=== PATIENT | female | born 1975 | race Two or more races ===

== ENCOUNTER 2016-10-22 08:11 | Emergency (ER) | payer MEDICAID ==
[~2016-10-22] VITALS: Wt 80.0 kg
[2016-10-22] MEDS ORDERED: KETOROLAC 60 MG INJ IM STA (08:39)
[2016-10-22] MEDS ORDERED: HYDROCODONE/APAP (5/325) TAB PO ONE (09:00)
--- NOTE | 2016-10-22 09:52 | RADRPT ---
PROCEDURE: CT lumbar spine without contrast CLINICAL INDICATION: Lower back pain radiating to right leg TECHNIQUE: CT scan of the lumbar spine was performed on a high-resolution multi-detector CT scanne r. No IV contrast was administered. Coronal and sagittal reformatted images were obtained from the axial source images. Images were reviewed on a high-resolution PACS workstation. Exam CTDI = 22.76 mGy and the DLP = 663.42 mGy-cm. One or more of the following dose reduction techniques were used: Automated exposure control. Adjustment of the mA and/or kV according to patient size. Use of iterative reconstruction technique. COMPARISON: None available FINDINGS: There is straightening of the lumbar lordosis. Alignment remains intact. No acute fracture or dislo cation is seen. The vertebral body heights are preserved. Posterior elements structures are equall y unremarkable. The paraspinous soft tissues are unremarkable. No mass, hematoma, or other soft tis gustabo abnormality is seen. T12-L1 through L3-L4: The disk heights are maintained. The central canal and bilateral neural fora sun are adequately patent. L4-L5: The disk height is maintained. There is mild diffuse disk bulge with mild facet arthropathy and ligamentum flavum thickening. There is mild left neural foraminal stenosis. The central canal and right neural foramen remain adequately patent. L5-S1: There is moderate disk height loss with discogenic endplate changes. There is disk osteophyte complex with superimposed central broad-based disk protrusion mildly indenting the thecal sac. The re is moderate bilateral neural foraminal stenosis. IMPRESSION: 1. No acute fracture or traumatic malalignment. 2. Moderate bilateral neural foraminal stenosis at L5-S1 related to disk osteophyte complex combine d with superimposed disk protrusion and mild facet arthropathy. 3. Mild left neural foraminal stenosis at L5-S1. RPTAT: BB .Vibha Burroughs MD, Date Time Electronically viewed and signed by .Vibha Burroughs MD, MD on 10/22/2016 09:51 .O/
--- NOTE | 2016-10-22 10:49 | ERD ---
ER Documentation Chief Complaint Date/Time DATE: 10/22/16 Chief Complaint Low back pain HPI The patient is a 41-year-old female with a history of chronic lumbar back pain who presents to the Emergency Department with complaint of low back pain radiating down the right lower extremity. The patient reports that for the past several years she has been experiencing chronic lumbar back pain, which she has been told is secondary to significant muscle spasm. She goes regularly to physical therapy for her back spasm and pain. The patient notes that over the past three months, her pain has been gradually worsening. It is localized to the lumbar back, and over the past several months has begun to radiate down the right lower extremity. The pain is constant, but worsened with movement, particularly bending over and valsalva maneuver, and is mildly improved while lying supine. She has been taking the prescribed Tramadol and Naproxen, as needed, but with only minimal relief of pain. Upon waking up this morning, she continued to experience this pain, and instead of taking her medication, decided to present to the Emergency Department for further evaluation. She notes that in the past, she has had an x-ray of her back, but otherwise, has not had an CT or MRI performed. She denies any bowel or bladder disturbances, urinary retention, lower extremity numbness/paresthesias/weakness. Denies fevers , sweats, chills, nausea, vomiting. Denies saddle-region anesthesia or foot drop. Denies history of immunocompromised state or IV drug use. Denies dysuria , hematuria, polyuria or flank pain. No other complaints at this time. ROS All systems reviewed and are negative except as per history of present illness. Medications Home Meds Active Scripts Hydrocodone/Acetaminophen ([place] 5-325 Tablet) 1 Each Tablet, 1 EACH PO Q6, #12 TAB Prov:LANCE MAJOR PA-C 10/22/16 Allergies Allergies: Coded Allergies: No Known Allergy (Unverified , 10/22/16) PMhx/Soc History of Surgery: Yes (HYSTERECTOMY, HERNIA REPAIR (ABD & IGUINAL), APPY) Anesthesia Reaction: No Hx Neurological Disorder: No Hx Respiratory Disorders: No Hx Cardiac Disorders: No Hx Psychiatric Problems: No Hx Miscellaneous Medical Probl: Yes (BACK PAIN) Hx Alcohol Use: No Hx Substance Use: No Hx Tobacco Use: No Smoking Status: Never smoker Physical Exam Vitals Vital Signs Date Time Temp Pulse Resp B/P Pulse Ox O2 Delivery O2 Flow Rate FiO2 10/22/16 11:24 97.9 74 17 118/81 100 Room Air 10/22/16 08:17 97.7 68 17 110/83 100 Physical Exam GENERAL: Well-developed, well-nourished, in no acute distress HEENT: Head is normocephalic, atraumatic. No scleral pallor or icterus. Pupils equal, round and reactive to light. Extraocular movements intact. Conjunctiva pink. Moist mucous membranes. NECK: Supple. No masses, no tenderness, no lymphadenopathy. Trachea midline. No nuchal rigidity. Full range of motion. RESPIRATORY: Lungs are clear to auscultation bilaterally. Equal breath sounds. Normal expiratory effort. CARDIOVASCULAR: Regular rate and rhythm. S1 and S2 normal. No murmurs, rubs, or gallops. GASTROINTESTINAL: Abdomen is soft, nontender, and nondistended. No guarding, no rebound tenderness. Normal bowel sounds. No pulsatile abdominal masses. No gross peritonitis. FLANK: No CVA tenderness, no mass or swelling. BACK: No midline tenderness. Bilateral lumbar paraspinal muscle spasm tenderness, right > left. No step offs. No crepitus. No vesicles. No saddle- region anesthesia. No foot drop. Positive right-sided straight leg raise. No gross deformities. EXTREMITIES: No clubbing, cyanosis, or edema. Normal skin perfusion. Moving all extremities. 5/5 strength to lower extremities bilaterally. No focal swelling or erythema. Distal pulses are palpable, 2+ bilaterally. Capillary refill is less than 2 seconds. NEUROLOGIC: The patient is alert, awake, and oriented x 3. No focal neurologic deficits. Motor and sensation grossly intact. INTEGUMENT: Skin is clean, dry and intact. PSYCHIATRIC: Appropriate; Cooperative. Results 24 hrs Current Medications Medications (Trade) Dose Ordered Sig/Jennifer Route PRN Reason Start Time Stop Time Status Last Admin Dose Admin Ketorolac Tromethamine (Toradol) 60 mg ONCE STAT IM 10/22/16 08:39 10/22/16 08:41 DC 10/22/16 08:56 Acetaminophen/ Hydrocodone Bitart ([place] (5/325)) 1 tab ONCE ONCE PO 10/22/16 09:00 10/22/16 09:01 DC 10/22/16 08:55 Procedures/MDM DIAGNOSTIC TESTS AND INTERPRETATION: PROCEDURE: CT lumbar spine without contrast CLINICAL INDICATION: Lower back pain radiating to right leg TECHNIQUE: CT scan of the lumbar spine was performed on a high-resolution multi-detector CT scanner. No IV contrast was administered. Coronal and sagittal reformatted images were obtained from the axial source images. Images were reviewed on a high-resolution PACS workstation. Exam CTDI = 22.76 mGy and the DLP = 663.42 mGy-cm. One or more of the following dose reduction techniques were used: Automated exposure control. Adjustment of the mA and/or kV according to patient size. Use of iterative reconstruction technique. COMPARISON: None available FINDINGS: There is straightening of the lumbar lordosis. Alignment remains intact. No acute fracture or dislocation is seen. The vertebral body heights are preserved. Posterior elements structures are equally unremarkable. The paraspinous soft tissues are unremarkable. No mass, hematoma, or other soft tissue abnormality is seen. T12-L1 through L3-L4: The disk heights are maintained. The central canal and bilateral neural foramina are adequately patent. L4-L5: The disk height is maintained. There is mild diffuse disk bulge with mild facet arthropathy and ligamentum flavum thickening. There is mild left neural foraminal stenosis. The central canal and right neural foramen remain adequately patent. L5-S1: There is moderate disk height loss with discogenic endplate changes. There is disk osteophyte complex with superimposed central broad-based disk protrusion mildly indenting the thecal sac. There is moderate bilateral neural foraminal stenosis. IMPRESSION: 1. No acute fracture or traumatic malalignment. 2. Moderate bilateral neural foraminal stenosis at L5-S1 related to disk osteophyte complex combined with superimposed disk protrusion and mild facet arthropathy. 3. Mild left neural foraminal stenosis at L5-S1. .Vibha Burroughs MD, MD Date Time Electronically viewed and signed by .Vibha Burroughs MD, on 10/22/2016 09:51 MEDICAL DECISION MAKING:This is a 41-year-old female with a multi-year history of chronic back pain presenting to the Emergency Department with complaint of lumbar back pain radiating down the right lower extremity for the past three months. On physical examination the patient had tenderness to palpation with spasm noted over the lumbar back, particularly L4-S1. She had a positive right straight leg raise and crossed leg raise, with no saddle-region anesthesia noted. Vital signs were appropriate. She exhibited no altered mental status, neurologic deficits, saddle anesthesia, bowel or bladder disturbances, incontinence, urinary retention, or lower extremity motor or sensory deficits. The differential diagnosis includes, but is not limited to cauda equina syndrome , epidural abscess, epidural hematoma, osteomyelitis, vertebral fracture, lumbosacral strain, herniated disc, spinal stenosis, nephrolithiasis, osteoarthritis, sciatica, spondylolisthesis, bursitis, fracture, pyelonephritis , abdominal aortic aneurysm, aortic dissection, herpes zoster, radiculopathy, myelopathy, neoplastic disease. CT imaging revealed foraminal stenosis with disk protrusion and facet arthropathy. Otherwise, no acute fracture or traumatic malalignment. After rest and administration of Toradol and [place], the patient reports no new complaints, and decreased pain. Upon my review and interpretation of the patient's presentation, clinical data, and overall ER course, I believe the patient's symptoms are most consistent with lumbar back pain with sciatica. I doubt cord compression or cauda equina syndrome, as patient is with equal, strong motor in bilateral lower extremities , no bowel/bladder disturbances, incontinence or retention, no saddle- anesthesia. Doubt vertebral fracture, no midline bony tenderness, no history of significant recent trauma. Doubt neoplastic disease, metastases unlikely given no night sweats, systemic symptoms, no risk factors. Doubt epidural abscess, patient is afebrile, with no history of IV drug use and is immunocompetent. Renal/aortic pathology not consistent with patient history or physical examination, no pulsatile abdominal masses, equal pulses bilaterally. Doubt pyelonephritis, no systemic symptoms, no flank pain, no CVA tenderness. Doubt zoster, no vesicular lesions noted. At this time, the patient is in stable condition and therefore can be discharged home with a prescription for [place] and strict return precautions for signs of deteriorating or worsening condition. The patient is advised to follow up with her primary care provider and a compliance review specialist within 1-2 days for reevaluation and further management, or return to the ER sooner for any new or worsening symptoms. Additionally, discussed that the patient may benefit from outpatient MRI. I shared my medical decision making and plan with the patient at length and in great detail, and the patient verbally understands and agrees with the plan for further observation and care as an outpatient. At the time of discharge, all questions were answered. Departure Diagnosis: Primary Impression: Low back pain with sciatica Chronicity: acute Back pain laterality: bilateral Sciatica laterality: sciatica of right side Qualified Code: M54.41 - Acute bilateral low back pain with right-sided sciatica Condition: Stable Patient Instructions: Back Pain W/ Sciatica, Understanding Sciatica Additional Instructions: Llame al doctor MAANA y barrera mekhi URIAH PARA DENTRO DE 1-2 LAMAS.Dgale a la secretaria que nosotros le instruimos hacer esta uriah.Avise o llame si ybarra condicin se empeora antes de la uriah. Regresa aqui si peor o no mejor. LANCE MAJOR PA-C October 22, 2016 10:49
[2016-10-22] MEDS ORDERED: HYDR-906 PO (10:50)
[2016-10-22 11:24] VITALS: BP 118/81; PULSE 74; RESP 17; TEMP 97.9
== END 2016-10-22 11:25 | disposition home or self-care (01) ==
LOC: FTE 08:11
DX: M54.41 Lumbago with sciatica, right side (principal)
CPT/HCPCS: 72131; J1885; Z7610; 96372